=== PATIENT | male | born 1945 | race Caucasian/White ===

== ENCOUNTER → 2019-03-31 | Outpatient (CLI) | payer BC ==
[~2019-03-31] MED LIST: CYCL-259 PO; HYDR-3240 PO; IBUP200T64 PO; METH750T2 PO; OXYC-302 PO; SENN8.6C2 PO
== END | disposition home or self-care (01) ==
LOC: RAD 11:29
PROVIDERS: ATTEND Physician Assistant Surgical
DX: S92.065A Nondisplaced intraarticular fracture of left calcaneus, initial encounter for closed fracture (principal); X58.XXXA Exposure to other specified factors, initial encounter; Y93.89 Activity, other specified; Y92.89 Other specified places as the place of occurrence of the external cause; Y99.8 Other external cause status